=== PATIENT | female | born 1935 | race Caucasian/White ===

== ENCOUNTER 2019-01-25 12:01 | Emergency (ER) | payer MEDICARE, OTHER, MEDICAID ==
[2019-01-25] MEDS ORDERED: Sodium Chloride 0.9% 1,000 ML IV SCH (12:15)
--- NOTE | 2019-01-25 12:42 | EDM.PDOC ---
ED HPI GENERAL MEDICAL PROBLEM - General Chief Complaint: General Stated Complaint: ER Time Seen by Provider: 01/25/19 12:01 Source of Information: Reports: EMS, EMS Notes Reviewed, Family - History of Present Illness INITIAL COMMENTS - FREE TEXT/NARRATIVE: Patient comes in the emergency department via EMS with decreased level of responsiveness, bradycardia, hypotension. Patient is a resident at the local care center is on palliative care. Dr. Rayna Ku was completed and her rounds this morning, the patient had 80 respirations decreased level of consciousness low blood pressure 70's/40's and low heart rate 30-40's She states that she discussed with the family regarding end-of-life and despite the patient being palliative care , requested further evaluation regarding her above symptoms. EMS states patient noted to be weaker on the left side than the right side, blood sugar within normal limits, EKG showed junctional rhythm in the 30s and 40s. An IV was started and patient was transported emergency department. On arrival to the emergency department the patient was unresponsive with no pupillary response. Onset: Sudden Improves with: Reports: None Worsens with: Reports: None Associated Symptoms: Reports: No Other Symptoms - Related Data Allergies Allergy/AdvReac Type Severity Reaction Status Date / Time cefuroxime axetil Allergy Unknown unknown Verified 01/25/19 12:55 [From Ceftin] levofloxacin Allergy Unknown unknown Verified 01/25/19 12:55 sertraline HCl [From Zoloft] Allergy Unknown unknown Verified 01/25/19 12:55 strawberry [[place]] Allergy Unknown unknown Verified 01/25/19 12:55 Sulfa (Sulfonamide Allergy Unknown unknown Verified 01/25/19 12:55 Antibiotics) sulfamethoxazole Allergy Unknown unknown Verified 01/25/19 12:55 [From Septra] trimethoprim [From Septra] Allergy Unknown unknown Verified 01/25/19 12:55 JIMY Inhibitors Allergy Other Verified 01/25/19 12:55 tomato [Tomato] Allergy Hives Verified 01/25/19 12:55 Home Meds: Home Meds ALPRAZolam [Alprazolam] 0.25 mg PO Q8HR PRN 12/13/14 [History] Acetaminophen [Tylenol Extra Strength] 2 tab PO Q6H PRN 12/13/14 [History] Albuterol Sulfate 1 ampule NEB BID PRN 12/13/14 [History] Albuterol Sulfate 1 ampule NEB QID 12/13/14 [History] Budesonide [Pulmicort] 1 ampule NEB BID 12/13/14 [History] Calcitriol [Rocaltrol] 0.5 mcg PO DAILY 12/13/14 [History] Carvedilol [Coreg] 6.25 mg PO BID 12/13/14 [History] Clobetasol [Clobetasol Propionate 0.05%] 15 gm TOP BID 12/13/14 [History] Cod Liver Oil/Zinc Oxide [Desitin Diaper Rash Paste] 1 applic TOP BID 12/13/14 [ History] Cyanocobalamin (Vitamin B-12) [B-12] 1,000 mcg PO DAILY 12/13/14 [History] Dextrose [Glucose] 3 - 6 tab PO DAILY PRN 12/13/14 [History] Dextrose [Glucose] 4 gm PO DAILY PRN 12/13/14 [History] Digoxin 125 mcg PO DAILY 12/13/14 [History] Donepezil HCl [Aricept] 10 mg PO BEDTIME 12/13/14 [History] Ferrous Sulfate 325 mg PO DAILY 12/13/14 [History] Furosemide [Lasix] 20 mg PO BID 12/13/14 [History] Insulin Aspart [NovoLOG] 6 units SUBCUT DAILY 12/13/14 [History] Insulin Aspart [NovoLOG] 12 units SUBCUT BID 12/13/14 [History] Insulin Glargine,Hum.Rec.Anlog [Lantus Solostar] 32 units SUBCUT DAILY 12/13/14 [History] Levothyroxine Sodium [Synthroid] 200 mcg PO ACBREAKFAST 12/13/14 [History] Losartan [Cozaar] 25 mg PO DAILY 12/13/14 [History] Melatonin/Pyridoxine HCl (B6) [Melatonin 3 mg Tablet] 1 each PO BEDTIME PRN 04/21 [History] Mirtazapine [Remeron] 1 tab PO DAILY 12/13/14 [History] Multivitamin [Multivitamins] 1 cap PO DAILY 12/13/14 [History] Mupirocin Oint [Bactroban Oint] 1 applic TOP TID PRN 12/13/14 [History] Omeprazole [Prilosec] 20 mg PO DAILY 12/13/14 [History] Potassium Chloride 20 meq PO DAILY 12/13/14 [History] Warfarin [Coumadin] 1 tab PO DAILY 12/13/14 [History] amLODIPine [Norvasc] 5 mg PO DAILY 12/13/14 [History] metFORMIN HCl [Metformin HCl] 500 mg PO BID 12/13/14 [History] ED ROS GENERAL - Review of Systems Review Of Systems: Unable To Obtain ED EXAM, GENERAL - Physical Exam Exam: See Below Exam Limited By: Altered Mental Status General Appearance: Obtunded, Severe Distress Eye Exam: Bilateral Eye: Abnormal EOM, Abnormal Pupil Respiratory/Chest: Respiratory Distress, Rales, Pleural Rub, Accessory Muscle Use, Retractions Cardiovascular: Bradycardia, Irregularly Irregular Peripheral Pulses: 1+: Carotid (L), Carotid (R) GI/Abdominal: Abnormal Bowel Sounds Neurological: Unresponsive, Abnormal Reflexes, Sensory/Motor Deficit Psychiatric: Other Skin Exam: Pallor Course - Orders/Labs/Meds Orders: Active Orders 24 hr Category Date Time Status Sodium Chloride 0.9% [Normal Saline] 1,000 ml Med 01/25/19 12:15 Ordered IV ASDIRECTED Medication Orders Sodium Chloride (Normal Saline) 1,000 mls @ 500 mls/hr IV ASDIRECTED [facility] Meds: Medications Generic Name Dose Route Start Last Admin Trade Name Freq PRN Reason Stop Dose Admin Sodium Chloride 1,000 mls @ 500 mls/hr 01/25/19 12:15 Normal Saline IV ASDIRECTED DOMINICK Departure - Departure Time of Disposition: 12:30 Disposition: 20 Clinical Impression: , End of life care, Multiorgan failure - Discharge Information *PRESCRIPTION DRUG MONITORING PROGRAM REVIEWED*: Not Applicable *COPY OF PRESCRIPTION DRUG MONITORING REPORT IN PATIENT DORA: Not Applicable Forms: ED Department Discharge - My Orders Last 24 Hours: My Active Orders 01/25/19 12:15 Sodium Chloride 0.9% [Normal Saline] 1,000 ml IV ASDIRECTED - Assessment/Plan Last 24 Hours: My Active Orders 01/25/19 12:15 Sodium Chloride 0.9% [Normal Saline] 1,000 ml IV ASDIRECTED Assessment:: 1. unresponsive Plan: 1. Unresponsive with PCP/family requesting transport and evaluation to ER 2. Labs and CT scan ordered 3. IV with NS 500ml bolus ordered and started 4. The patient was transported to the CT scanner by nursing staff and CT staff notified ER provider that the patient's respirations had diminished substantially. Upon assessment patient was not breathing, had no pulse, no air exchange upon auscultation, called at 1223. Family present in the waiting room and they were updated. PCP was contacted. 5. Patient does not meet ND anterior for autopsy. She was end-of-life care, failure to thrive, and multiorgan failure. 6. All questions and concerns were addressed with the family
[2019-01-25 12:44] VITALS: BP 71/27
== END 2019-01-25 12:23 | disposition expired ==
LOC: VM.ED 12:01
DX: R40.20 Unspecified coma (principal); Z79.899 Other long term (current) drug therapy; Z91.018 Allergy to other foods; Z88.2 Allergy status to sulfonamides; Z88.8 Allergy status to other drugs, medicaments and biological substances; Z88.1 Allergy status to other antibiotic agents
CPT/HCPCS: 99283-GF; 99285